=== PATIENT | female | born 1970 | race Two or more races ===

== ENCOUNTER → 2019-12-31 | Outpatient (CLI) | payer OTHER ==
[~2019-12-31] MED LIST: IRON PO
[2019-12-31 15:43] LABS: BASOPHILS # (AUTO) 0.09 x10^3/uL (0-0.1); BASOPHILS % (AUTO) 1 % (0-1); EOSINOPHILS # (AUTO) 0.11 x10^3/uL (0-0.4); EOSINOPHILS % (AUTO) 1 % (1-7); LYMPHOCYTES # (AUTO) 1.62 x10^3/uL (1-3.4); LYMPHOCYTES % (AUTO) 21 % (22-44); MD NO; MEAN CORPUSCULAR HGB CONC 33.1 g/dL (32.4-35.8); MEAN CORPUSCULAR VOLUME 84.5 fL (80-100); MEAN PLATELET VOLUME 8.2 fL (7.4-10.4); MONOCYTES # (AUTO) 0.32 x10^3/uL (0.2-0.8); MONOCYTES % (AUTO) 4 % (2-9); NEUTROPHILS # (AUTO) 5.48 x10^3/uL (1.8-6.8); NEUTROPHILS % (AUTO) 72 % (42-75); PLATELET COUNT 409 x10^3/uL (130-400); RED BLOOD COUNT 4.19 x10^6/uL (3.82-5.3); RED CELL DISTRIBUTION WIDTH 13.8 % (9.6-15.2)
[2019-12-31 16:00] LABS: MICROSCOPIC INDICATED
== END | disposition home or self-care (01) ==
LOC: STAR 14:39
PROVIDERS: ATTEND Obstetrics & Gynecology
DX: Z01.818 Encounter for other preprocedural examination (principal); N92.0 Excessive and frequent menstruation with regular cycle; R10.2 Pelvic and perineal pain; D64.9 Anemia, unspecified
CPT/HCPCS: 36415; 81001; 84703; 85025; 87086

== ENCOUNTER 2020-01-10 08:36 | Day surgery (SDC) | payer OTHER ==
[~2020-01-10] VITALS: Ht 157.5 cm; Wt 73.6 kg
[~2020-01-10 08:36] MED LIST changes: +BUPIVACAINE/PF 0.25% ONE; +EPHEDRINE 50 MG/ML, 1ML IVPush PRN; +FLUORESCEIN SODIUM 500 MG/5 ML ONE; +HYDROmorphone 1 MG/ML, 1ML INJ IVPush PRN; +LABETALOL 5MG/ML, 20ML IV PRN; +MEPERIDINE/PF 25MG/0.5ML IVPush PRN; +ONDANSETRON 2MG/ML, 2ML IVPush PRN; +PROMETHAZINE 25 MG/ML, 1ML IVPush PRN; +hydrALAzine 20 MG/ML, 1ML IV PRN
[2020-01-10] MEDS ORDERED: LACTATED RINGERS 1,000 ML IV SCH (08:58)
[2020-01-10] MEDS ORDERED: CHLORHEXIDINE 15 ML UDC MM STA (08:59)
[2020-01-10] MEDS ORDERED: ACETAMINOPHEN 500 MG TABLET PO ONE (09:00)
[2020-01-10] MEDS ORDERED: MIDAZOLAM 1 MG/ML, 2ML ONE (09:22)
[2020-01-10] MEDS ORDERED: FENTANYL PF 250 MCG/5ML ONE (09:22)
[2020-01-10 09:38] LABS: HCG UR SG 1.028 (1.003-1.030)
[2020-01-10] MEDS ORDERED: SODIUM CHLORIDE 0.9% PF 10ML ONE (11:11)
[2020-01-10] MEDS ORDERED: LIDOCAINE-MPF 2% ,5ML ONE (11:11)
[2020-01-10] MEDS ORDERED: SUGAMMADEX 200 MG/2 ML IVPush ONE (11:11)
[2020-01-10] MEDS ORDERED: ROCURONIUM 10MG/ML,5ML ONE (11:14)
[2020-01-10] MEDS ORDERED: CEFAZOLIN 1,000 MG ONE (11:14)
[2020-01-10] MEDS ORDERED: ONDANSETRON 2MG/ML, 2ML ONE (11:14)
[2020-01-10] MEDS ORDERED: PROPOFOL 10 MG/ML, 20ML ONE (11:14)
[2020-01-10] MEDS ORDERED: SUCCINYLCHOLINE 20 MG/ML, 10ML ONE (11:14)
[2020-01-10] MEDS ORDERED: DEXAMETHASONE 4 MG/ML, 1ML ONE (11:14)
[2020-01-10] MEDS ORDERED: METHYLENE BLUE 50 MG/10 ML AMP ONE (12:05)
[2020-01-10] MEDS ORDERED: OXYcodone 5 MG/5 ML ORAL.SOL UDC ONE (13:17)
[2020-01-10] MEDS ORDERED: FENTANYL PF 100 MCG/2ML ONE (13:17)
[2020-01-10] MEDS: FENTANYL PF 100 MCG/2ML IV PRN ×2 (13:20→13:25)
[2020-01-10] MEDS: OXYcodone 5 MG/5 ML ORAL.SOL UDC PO PRN ×2 (13:34→14:11)
== END 2020-01-10 16:00 | disposition home or self-care (01) ==
LOC: OUT 08:36
PROVIDERS: ATTEND Obstetrics & Gynecology
DX: R10.2 Pelvic and perineal pain (principal); Z11.59 Encounter for screening for other viral diseases; N83.291 Other ovarian cyst, right side; E78.5 Hyperlipidemia, unspecified; Z98.890 Other specified postprocedural states; Z90.49 Acquired absence of other specified parts of digestive tract; Z79.899 Other long term (current) drug therapy
CPT/HCPCS: 36415; 58552; 58662; 81025; 87635; 88307; J0330; J0690; J1100; J2250; J2405; J2704; J3010; J3490; J7120; Q9968; S2900